=== PATIENT | male | born 1965 | race Caucasian/White ===

== ENCOUNTER → 2017-03-28 | Outpatient (CLI) | payer OTHER ==
--- NOTE | 2017-03-28 10:38 | DIAGNOSTIC IMAGING REPORT ---
ABDOMEN FOR HERNIA CLINICAL HISTORY: 51 years-old Male presenting with VENTRAL HERNIA K43.9. TECHNIQUE: Real-time grayscale ultrasound imaging of the midline ventral abdominal wall was performed for a focused examination for ventral hernia. COMPARISON: None. FINDINGS: At the site of clinical interest in the midline ventral abdomen focal herniation noted, likely containing bowel and fat. No associated fluid. No intraperitoneal fluid or gross evidence of bowel distention. IMPRESSION: 1. Suspected midline ventral hernia containing bowel and fat. This could be further evaluated with CT if clinically warranted. Electronically signed by: Johnny Santoro M.D. 03/28/2017 10:36 AM Dictated Date/Time: 03/28/2017 10:35 AM
[2017-03-28 12:40] LABS: BLOOD UREA NITROGEN 13 mg/dl (7-18); BUN/CREATININE RATIO 13.5 (10-20); CALCIUM 9.1 mg/dl (8.5-10.1); CARBON DIOXIDE 30 mmol/L (21-32); CHLORIDE 103 mmol/L (98-107); CREATININE 0.93 mg/dl (0.60-1.40); GLUCOSE 84 mg/dl (70-99); SODIUM 139 mmol/L (136-145)
[2017-03-28 12:45] LABS: CHOLESTEROL 204 mg/dl (0-200); CHOLESTEROL/HDL RATIO 4.6; HDL CHOLESTEROL 44 mg/dl; LDL CHOLESTEROL CALCULATED 127 mg/dl; PROSTATE SPECIFIC ANTIGEN 0.568 ng/ml (0.000-4.000); TRIGLYCERIDES 164 mg/dl (0-150); VERY LOW DENSITY LIPOPROT CALC 33 mg/dl
== END | disposition home or self-care (01) ==
LOC: EDSEX → C.ULTR 09:52
PROVIDERS: ATTEND Internal Medicine
DX: E78.5 Hyperlipidemia, unspecified (principal); Z12.5 Encounter for screening for malignant neoplasm of prostate; Z13.1 Encounter for screening for diabetes mellitus; K43.9 Ventral hernia without obstruction or gangrene